=== PATIENT | female | born 1980 | race Caucasian/White ===

== ENCOUNTER 2018-10-20 12:11 | Inpatient (IN) | payer MEDICAID, OTHER ==
[~2018-10-20] VITALS: Ht 154.9 cm; Wt 108.9 kg
[2018-10-20] MEDS ORDERED: SODIUM CHLORIDE 0.9% 1,000 ML IV ONE (14:19)
[2018-10-20 15:27] LABS: BASOPHILS % 0.6 % (0.0-2.0); HEMATOCRIT. 37.9 % (36.0-48.0); HEMOGLOBIN. 12.3 g/dL (12.0-16.0); LYMPHOCYTES % 24.7 % (20.0-50.0); MEAN CORPUSCULAR HEMOGLOBIN 26.9 pg (28.0-32.0); MEAN CORPUSCULAR VOLUME 82.7 fL (81.0-99.0); MEAN PLATELET VOLUME 10.9 fl (7.4-10.4); MONOCYTES % 5.9 % (2.0-8.0); NEUTROPHILS % 66.8 % (40.0-76.0); PLATELET 231 x1000/uL (130-400); RED BLOOD CELL COUNT 4.58 mill/uL (4.2-5.4); RED CELL DISTRIBUTION WIDTH 15.7 % (11.6-14.6)
[2018-10-20 15:31] LABS: CHLORIDE 108 mEq/L (98-107)
[2018-10-20 15:32] LABS: HCG SCREEN NEGATIVE
[2018-10-20 15:35] LABS: ETHANOL BLOOD < 10 mg/dL
[2018-10-20 16:11] LABS: CLARITY URINE CLEAR (CLEAR); COLOR URINE YELLOW (YELLOW); KETONES URINE NEGATIVE (NEGATIVE); LEUKOCYTE ESTERASE URINE NEGATIVE (NEGATIVE); NITRITE URINE NEGATIVE (NEGATIVE); OCCULT BLOOD URINE TRACE (NEGATIVE); PH URINE 5.5 (4.5-8.0); PROTEIN URINE NEGATIVE (NEGATIVE); SPECIFIC GRAVITY URINE 1.019 (1.005-1.030); UROBILINOGEN URINE 0.2 E.U./dL (0.2-1.0)
[2018-10-20 16:22] LABS: *AMPHETAMINES SCREEN URINE NEGATIVE (NEGATIVE); *BARBITURATES SCREEN URINE NEGATIVE (NEGATIVE); *BENZODIAZEPINES SCREEN URINE NEGATIVE (NEGATIVE); *COCAINE SCREEN URINE NEGATIVE (NEGATIVE)
[2018-10-20 16:23] LABS: CANNABINOID URINE SCREEN NEGATIVE (NEGATIVE); METHADONE URINE SCREEN NEGATIVE (NEGATIVE); OPIATES URINE SCREEN NEGATIVE (NEGATIVE); PHENCYCLIDINE URINE SCREEN NEGATIVE (NEGATIVE)
[2018-10-20] MEDS ORDERED: ACETAMINOPHEN 325MG TABLET PO ONE (17:00)
[2018-10-20 17:34] LABS: PROTHROMBIN TIME 10.5 sec (9.1-11.1)
[2018-10-20] MEDS ORDERED: ACETAMINOPHEN 325MG TABLET PO PRN (17:45)
[2018-10-20] MEDS ORDERED: ONDANSETRON HCL 4MG/2ML INJ IV PRN (17:45)
[2018-10-20] MEDS ORDERED: LACTULOSE 20G/30ML UDC PO ONE (18:15)
[2018-10-20] MEDS ORDERED: LACTULOSE 20G/30ML UDC PO NR (18:45)
[2018-10-20] MEDS ORDERED: SUMATRIPTAN SUCCINATE 6MG/0.5ML VIAL SUBCUT NR (20:00)
[2018-10-20 20:06] VITALS: BP 118/67
[2018-10-20 21:00] VITALS: BP 118/67
[2018-10-20] MEDS ORDERED: ATORVASTATIN CALCIUM 20MG TABLET PO SCH (21:00)
[2018-10-21 04:00] VITALS: BP 106/57
[2018-10-21 06:24] LABS: BASOPHILS % 0.5 % (0.0-2.0); HEMOGLOBIN. 11.6 g/dL (12.0-16.0); LYMPHOCYTES % 24.7 % (20.0-50.0); MEAN CORPUSCULAR HEMOGLOBIN 26.7 pg (28.0-32.0); MEAN CORPUSCULAR VOLUME 82.6 fL (81.0-99.0); MEAN PLATELET VOLUME 10.3 fl (7.4-10.4); MONOCYTES % 6.3 % (2.0-8.0); NEUTROPHILS % 66.5 % (40.0-76.0); PLATELET 205 x1000/uL (130-400); RED BLOOD CELL COUNT 4.36 mill/uL (4.2-5.4); RED CELL DISTRIBUTION WIDTH 15.6 % (11.6-14.6)
[2018-10-21 06:49] LABS: CHLORIDE 108 mEq/L (98-107)
[2018-10-21 08:00] VITALS: BP 105/53
[2018-10-21 10:04] LABS: CREATINE KINASE 67 IU/L (26-192)
[2018-10-21 12:00] VITALS: BP 101/65
[2018-10-21 17:17] VITALS: BP 101/65
== END 2018-10-21 18:20 | disposition home or self-care (01) | DRG 48 ==
LOC: ER 12:51 → ENRESERV 15:27 → 8WST 17:09 → EDBEDREQ 17:13
PROVIDERS: ADMIT Internal Medicine; ATTEND Internal Medicine
DX: G90.8 Other disorders of autonomic nervous system (principal); G93.40 Encephalopathy, unspecified; E66.01 Morbid (severe) obesity due to excess calories; E87.8 Other disorders of electrolyte and fluid balance, not elsewhere classified; E78.00 Pure hypercholesterolemia, unspecified; E78.5 Hyperlipidemia, unspecified; G43.109 Migraine with aura, not intractable, without status migrainosus; I10 Essential (primary) hypertension; Z90.49 Acquired absence of other specified parts of digestive tract; Z68.42 Body mass index [BMI] 45.0-49.9, adult; Z71.3 Dietary counseling and surveillance
CPT/HCPCS: 36415; 70544; 70553; 71045; 72141; 72148; 80048; 80061; 80305; 81025; 82140; 82550; 82962; 83605; 84443; 84484; 84703; 93005; 93306; 93880; 96360; 96361; 97162; 97165; 99285; J2405; J3030; J7030

== ENCOUNTER 2022-11-21 18:22 | Emergency (ER) | payer OTHER ==
[~2022-11-21] VITALS: Ht 152.4 cm; Wt 95.0 kg
[2022-11-21] MEDS ORDERED: MORPHINE SULFATE 4 MG/ML CPJ (NOT FOR IM USE) IV ONE ×2 (20:00→23:00)
[2022-11-21] MEDS ORDERED: ONDANSETRON HCL 4MG/2ML INJ IV NR (21:00)
[2022-11-21] MEDS ORDERED: FAMOTIDINE 20MG/2ML VIAL IV NR (21:00)
[2022-11-21] MEDS ORDERED: MORPHINE SULFATE 4 MG/ML CPJ (NOT FOR IM USE) IV SCH (21:45)
[2022-11-21 21:49] LABS: BASOPHILS % 0.3 % (0.0-2.0); EOSINOPHILS % 0.2 % (0.0-5.0); HEMATOCRIT. 39.1 % (36.0-48.0); HEMOGLOBIN. 12.7 g/dL (12.0-16.0); MEAN CORPUSCULAR HEMOGLOBIN 27.6 pg (28.0-32.0); MEAN CORPUSCULAR VOLUME 84.8 fL (81.0-99.0); MEAN PLATELET VOLUME 10.2 fl (7.4-10.4); MONOCYTES % 3.8 % (2.0-8.0); NEUTROPHILS % 81.7 % (40.0-76.0); PLATELET 243 x1000/uL (130-400); RED BLOOD CELL COUNT 4.61 mill/uL (4.2-5.4); RED CELL DISTRIBUTION WIDTH 15.1 % (11.6-14.6)
[2022-11-21 21:51] LABS: CLARITY URINE CLEAR (CLEAR); COLOR URINE YELLOW (YELLOW); KETONES URINE NEGATIVE (NEGATIVE); LEUKOCYTE ESTERASE URINE NEGATIVE (NEGATIVE); NITRITE URINE NEGATIVE (NEGATIVE); OCCULT BLOOD URINE NEGATIVE (NEGATIVE); PH URINE 5.5 (4.5-8.0); PROTEIN URINE NEGATIVE (NEGATIVE); SPECIFIC GRAVITY URINE 1.049 (1.005-1.030); UROBILINOGEN URINE 0.2 E.U./dL (0.2-1.0)
[2022-11-21 21:54] LABS: CHLORIDE 106 mEq/L (98-107)
[2022-11-21 22:01] LABS: ETHANOL BLOOD < 10 mg/dL
[2022-11-21 22:05] LABS: *AMPHETAMINES SCREEN URINE NEGATIVE (NEGATIVE); *BARBITURATES SCREEN URINE NEGATIVE (NEGATIVE); *BENZODIAZEPINES SCREEN URINE NEGATIVE (NEGATIVE); *COCAINE SCREEN URINE NEGATIVE (NEGATIVE); CANNABINOID URINE SCREEN NEGATIVE (NEGATIVE); METHADONE URINE SCREEN NEGATIVE (NEGATIVE); OPIATES URINE SCREEN NEGATIVE (NEGATIVE); PHENCYCLIDINE URINE SCREEN NEGATIVE (NEGATIVE)
[2022-11-21] MEDS ORDERED: IOHEXOL-350 100 ML BOTTLE ONE (22:18)
[2022-11-22 04:55] VITALS: BP 114/63
[2022-11-22] MEDS ORDERED: MORPHINE SULFATE 4 MG/ML CPJ (NOT FOR IM USE) IV ONE (05:00)
== END 2022-11-22 05:02 | disposition short-term general hospital (02) ==
LOC: ER 18:22 → EDBEDREQ 23:04 → EDBEDREQTM 23:04 → EDBEDREQSVC 23:04 → EDBEDREQTM 11-22 01:30 → EDBEDREQDT 11-22 01:30 → EDBEDREQ 11-22 01:30 → ER 11-22 05:02 → CANBEDREQ 11-23 14:55
DX: Z90.49 Acquired absence of other specified parts of digestive tract (principal); Z20.822 Contact with and (suspected) exposure to COVID-19
CPT/HCPCS: 36415; 70450; 70496; 70498; 71045; 71275; 74174; 80053; 80305; 80320; 81003; 83605; 83690; 84484; 85025; 87426; 93005; 96374; 96375; 96376; 99285; C9803; J2270; J2405; J3490; Q9967; Z7610; G0480